=== PATIENT | female | born 1970 | race Caucasian/White ===

== ENCOUNTER 2017-05-22 09:55 | Emergency (ER) | payer SELFPAY ==
--- NOTE | 2017-05-22 10:42 | ER Document Report ---
ED Eye Complaint - General Chief Complaint: Eye Pain Stated Complaint: EYE PAIN Time Seen by Provider: 05/22/17 10:07 Mode of Arrival: Ambulatory Information source: Patient TRAVEL OUTSIDE OF THE [place] IN LAST 30 DAYS: No - HPI Patient complains to provider of: Left eye pain Onset: This morning Eye location: Left Injury: No - denies injury/trauma Occurred at: Home Quality of pain: Sharp, Stabbing Severity: Severe Pain Level: 5 Exposure: No: Alkaline chemical, Acidic chemical, Unknown chemical, Direct trauma, Projectile, Broken glass, Conjunctivitis, Welding arc, Tanning olivas, Other Safety glasses worn: No - n/a Contact lenses worn: No - denies, uses glasses only Eye irrigated by: saline Associated symptoms: Pain, Photophobia, Double vision - chronic per patient, but increased since this AM, Decreased vision - decreased focus ability per patient. denies: Burning, Itching, Redness, Matting, Eyelid swelling, Orbital swelling, Foreign body sensation, Blurred vision, Loss of vision, Other Notes: Patient states pain to movement of her eye + mild HANNON No recent illness, injury, sick contacts, or travel No redness or discharge per patient except for occ watery discharge + smoker, denies drugs Prev eye surgery as a child H/o unnoticed orbit fracture until MRI in [address] Garcia --wanted her to see orbital specialist, but she lost job/insurance and has not gone Intermittent eye pain since then, but worst it has every been per patient this morning. - Related Data Allergies/Adverse Reactions: No Known Allergies Allergy (Verified 05/22/17 10:00) Past Medical History - Social History Smoking Status: Current Every Day Smoker Chew tobacco use (# tins/day): No Frequency of alcohol use: None Drug Abuse: None Family History: CAD, Other - DVTs Pulmonary Medical History: Reports: Hx COPD Renal/ Medical History: Denies: Hx Peritoneal Dialysis GI Medical History: Reports: Hx Gastroesophageal Reflux Disease, Hx Irritable Bowel - Right oophorectomy Musculoskeltal Medical History: Reports Hx Arthritis Past Surgical History: Reports: Hx Appendectomy, Hx Section, Hx Hysterectomy - Immunizations Immunizations up to date: Yes Hx Diphtheria, Pertussis, Tetanus Vaccination: Yes Review of Systems - Review of Systems Notes: REVIEW OF SYSTEMS: CONSTITUTIONAL : Denies fever, chills, or sweats. Denies recent illness. ENT: Denies , ear, throat, or mouth pain or symptoms. Denies nasal or sinus congestion or discharge. Denies throat, tongue, or mouth swelling or difficulty swallowing. CARDIOVASCULAR: Denies chest pain. Denies palpitations or racing or irregular heart beat. Denies ankle edema. RESPIRATORY: Denies cough, cold, or chest congestion. Denies shortness of breath, difficulty breathing, or wheezing. GASTROINTESTINAL: Denies abdominal pain or distention. Denies nausea, vomiting , or diarrhea. Denies blood in vomitus, stools, or per rectum. Denies black, tarry stools. Denies constipation. GENITOURINARY: Denies difficulty urinating, painful urination, burning, frequency, blood in urine, or discharge. MUSCULOSKELETAL: Denies back or neck pain or stiffness. Denies joint pain or swelling. SKIN: Denies rash, lesions or sores. NEUROLOGICAL: + HANNON. see hpi. Denies confusion or altered mental status. Denies passing out or loss of consciousness. Denies dizziness or lightheadedness. Denies weakness or paralysis or loss of use of either side. Denies problems with gait or speech. Denies sensory loss, numbness, or tingling. ALL OTHER SYSTEMS REVIEWED AND NEGATIVE. Dictation was performed using [employer] voice recognition software Physical Exam - Vital signs Vitals: Temp Pulse Resp BP Pulse Ox 98.0 F 83 20 147/95 H 100 05/22/17 10:00 05/22/17 10:00 05/22/17 10:00 05/22/17 10:00 05/22/17 10:00 - General General appearance: Appears well In distress: Mild - eyes closed and lights out in room - HEENT Head: Normocephalic Eyes: No: Pale conjunctiva, Periorbital ecchymosis, Periorbital edema, Scleral icterus, Tears Conjunctiva: Normal. No: Icteric, Injected, Purulent discharge Cornea: Normal. No: Corneal abrasion, Corneal ulcer, Dendrite, Embedded foreign body, Flourescein stain uptake, Opacified, Superficial foreign body Extraocular movements intact: Yes Eyelashes: Normal Pupils: PERRL Visual acuity- Right eye: 20/30 Visual acuity- Left eye: 20/40 Visual acuity- Both eyes: 20/40 Corrective lenses worn: Yes - Glasses Right intraocular pressure: 16 Left intraocular pressure: 17 Lids everted for exam: bilateral: Normal Anterior chamber: Normal Fundascopic: Normal - limited exam due to patient sensitivity to light Nerve palsy: No Visual blake normal: Yes - generally Ears: Normal External canal: Normal Tympanic membrane: Normal Sinus: Normal Nasal: Normal Mouth/Lips: Normal Mucous membranes: Normal Pharynx: Normal Neck: Normal - Respiratory Respiratory status: No respiratory distress Chest status: Nontender Breath sounds: Normal - Cardiovascular Rhythm: Regular Heart sounds: Normal auscultation Murmur: No Pulses: Normal: Brachial, Radial, Carotid Normal capillary refill: Yes - Extremities Ankle: No: Edema Foot: No: Edema - Neurological Neuro grossly intact: Yes Cognition: Normal Orientation: AAOx4 Speech: Normal Cranial nerves: Normal Sensory: Normal Course - Re-evaluation Re-evalutation: 05/22/17 11:13 Patient is an afebrile, well-hydrated, 46-year-old female who presents to the ED complaining of left eye pain and headache, not otherwise specified. Vitals are stable. PE otherwise unremarkable. Her vision test with glasses is similar to what was found in the past. Tonometry bilaterally with 16 in the right and 17 in the left. Fluorescein exam was unremarkable. There was no redness, ulceration, abrasion, or other fluorescein uptake or acute pathology noted on exam. Reviewed case with Dr. Garcia who states that he will be willing to see her in his office this afternoon, but states that we will not need to do anything else at this point based on H&P today. Risks and benefits were reviewed with the patient. Patient is advised to check in with Dr. Garrett 's office to set up a time this afternoon for evaluation. Return to the ED with any worsening/concerning symptoms otherwise as reviewed in discharge. Recheck with your PCM this week as well. Patient is in agreement. - Vital Signs Vital signs: Temp Pulse Resp BP Pulse Ox 98.0 F 83 20 147/95 H 100 05/22/17 10:00 05/22/17 10:00 05/22/17 10:00 05/22/17 10:00 05/22/17 10:00 Procedures - Eye Procedure Left Time completed: 10:30 Eye Irrigated w/ Saline (ccs): 30 Alcaine Drops Administered: Yes Fluorescein applied: Left Slit lamp used: No Discharge - Discharge Clinical Impression: Eye pain Qualifiers: Laterality: left Qualified Code(s): H57.12 - Ocular pain, left eye Headache Qualifiers: Headache type: unspecified Headache chronicity pattern: acute headache Intractability: intractable Qualified Code(s): R51 - Headache Condition: Stable Disposition: HOME, SELF-CARE Additional Instructions: Keep eyes clean Avoid scratching or touching eye Tylenol/ibuprofen as needed Call Dr. Garcia's office to schedule an appointment for this afternoon Return to the ED with any worsening symptoms and/or development of fever, worsening headache, facial numbness/swelling, vision loss, halo's/flashing light in vision, chest pain, palpitations, syncope, shortness of breath, trouble breathing, abdominal pain, muscle weakness/paralysis, numbness/tingling , or other worsening symptoms that are concerning to you. Forms: Elevated Blood Pressure, Smoking Cessation Education Referrals: AUSTIN GARCIA DO [ACTIVE STAFF] - 05/22/17
[2017-05-22] MEDS ORDERED: OXYCODONE HCL IR 5 MG TABLET PO ONE (11:24)
[2017-05-22] MEDS ORDERED: DIPHENHYDRAMINE HCL 50 MG/ML VIAL IV ONE (11:29)
[2017-05-22] MEDS ORDERED: PROCHLORPERAZINE EDISYLATE INJ 10 MG/2 ML VIAL IM ONE (11:29)
[2017-05-22] MEDS ORDERED: KETOROLAC TROMETHAMINE INJ/PF 30 MG/1 ML SDV IV ONE (11:29)
[2017-05-22 11:58] VITALS: BP 123/71
== END 2017-05-22 11:56 | disposition home or self-care (01) ==
LOC: ER 09:55
DX: H57.12 Ocular pain, left eye (principal); R51 Headache; H53.2 Diplopia; H53.149 Visual discomfort, unspecified; H54.7 Unspecified visual loss; Z87.81 Personal history of (healed) traumatic fracture; F17.200 Nicotine dependence, unspecified, uncomplicated; J44.9 Chronic obstructive pulmonary disease, unspecified
CPT/HCPCS: 99283; 96372; 96374; 96375; J1200; J1885; J0780

== ENCOUNTER → 2017-07-23 | Outpatient (CLI) | payer BC ==
--- NOTE | 2017-07-24 09:36 | RADIOLOGY REPORT (SQ) ---
EXAM DESCRIPTION: MRI LT LOWER EXTREMITY COMBO COMPLETED DATE/TIME: 07/23/2017 8:43 pm REASON FOR STUDY: LOCALIZED SWELLING, MASS AND LUMP, LEFT LOWER LIMB, BILATERAL FOOT R22.42 LOCALIZ ED SWELLING, MASS AND LUMP, LEFT LOWER LIMB COMPARISON: None. TECHNIQUE: T1-weighted, T2-weighted, and gradient echo noncontrast multiplanar imaging of the left f oot. Post-contrast fat saturated T1 sagittal coronal and axial images were also obtained. Patient injected with 15 mL of IV ProHance gadolinium. Estimated GFR not required due to patient age LIMITATIONS: None. FINDINGS: MARROW SIGNAL: No marrow signal alteration. No occult fracture. No evidence for osteo ne crosis. JOINT EFFUSION: No significant effusions. PLANTAR FASCIA: Patient has a painful nodule along the plantar aspect of 1st left foot. Painful nodu le was marked on the skin with a vitamin E capsule. Deep to the vitamin-E capsule, a nodular area of contrast enhancement is present along the superficial aspect of the medial bundle plantar fascia, co mpatible with plantar fasciitis and fibroma. This nodule measures 16 mm long by 11 mm transverse by 7 mm in thickness, and is best shown on axial image 18, sagittal image 8, and coronal image 26. TARSOMETATARSAL AND TOE ARTICULATIONS: Anatomic. Mild degenerative changes first metatarsal phalange al joint. INTERMETATARSAL SPACES AND PLANTAR PLATES: Intact. No soft tissue mass to suggest a neuroma. SOFT TISSUES: No masses. No fibrosis. OTHER: No other significant finding. IMPRESSION: Plantar fibroma along the medial plantar fascia bundle, 16 x 11 x 7 mm in size. TECHNICAL DOCUMENTATION: JOB ID: [id number]- All Rights Reserved
--- NOTE | 2017-07-24 09:45 | RADIOLOGY REPORT (SQ) ---
EXAM DESCRIPTION: MRI RT LOWER EXTREMITY COMBO COMPLETED DATE/TIME: 07/23/2017 8:43 pm REASON FOR STUDY: LOCALIZED SWELLING, MASS AND LUMP, RIGHT LOWER LIMB R22.42 LOCALIZED SWELLING, MA SS AND LUMP, LEFT LOWER LIMB COMPARISON: None. TECHNIQUE: T1-weighted, T2-weighted, and gradient echo noncontrast multiplanar imaging of the right foot. Post-contrast fat saturated T1 sagittal coronal and axial images were also obtained. Patient injected with 15 mL of IV ProHance gadolinium. Estimated GFR not required due to patient age LIMITATIONS: None. FINDINGS: MARROW SIGNAL: No marrow signal alteration. No occult fracture. No evidence for osteo ne crosis. JOINT EFFUSION: No significant effusions. PLANTAR FASCIA: In the medial bundle of the plantar fascia, at about the level of the mid 1st metatar jairon, a 9 mm transverse by 9 mm craniocaudad by 14 mm long contrast-enhancing fibroma is present along the superficial aspect of the fascia. A 2nd area of concern along the medial bundle plantar fascia is present with a broad area of increase d signal and contrast enhancement from plantar fasciitis and a more well-circumscribed fibroma. The area of plantar fasciitis with inflammation and enhancement measures about 3.5 cm in length, 14 mm tr ansverse and 7 mm in thickness. A more focal well defined fibroma within the fibers of the plantar f ascia is seen, 2 cm long by 6 mm transverse by 8 mm craniocaudad. TARSOMETATARSAL AND TOE ARTICULATIONS: Anatomic. Mild degenerative changes first metatarsal phalange al joint. INTERMETATARSAL SPACES AND PLANTAR PLATES: Intact. No soft tissue mass to suggest a neuroma. SOFT TISSUES: No masses. No fibrosis. OTHER: No other significant finding. IMPRESSION: Plantar fasciitis with 2 plantar fibromas. TECHNICAL DOCUMENTATION: JOB ID: [id number] [employer]- All Rights Reserved
== END ==
LOC: RAD 18:24
PROVIDERS: ATTEND Podiatrist Foot & Ankle Surgery
DX: R22.43 Localized swelling, mass and lump, lower limb, bilateral (principal)
CPT/HCPCS: 73720 ×2; A9576

== ENCOUNTER 2017-09-13 06:35 | Day surgery (SDC) | payer BC ==
[2017-09-12 15:29] LABS: ABSOLUTE EOSINOPHILS # (AUTO) 0.2 10^3/uL (0.0-0.6); ABSOLUTE LYMPHOCYTES (AUTO) 2.4 10^3/uL (0.5-4.7); ABSOLUTE MONOCYTES (AUTO) 0.6 10^3/uL (0.1-1.4); BASOPHILS % (AUTO) 0.4 % (0-2); EOSINOPHILS % (AUTO) 2.2 % (0-6); HEMATOCRIT 39.9 % (36.0-47.0); HEMOGLOBIN 14.2 g/dL (12.0-15.5); HGB HCT DIFFERENCE 2.7; MEAN CORPUSCULAR HEMOGLOBIN 31.8 pg (27.0-33.4); MEAN CORPUSCULAR HGB CONC 35.5 g/dL (32.0-36.0); MEAN CORPUSCULAR VOLUME 89 fl (80-97); MONOCYTES % (AUTO) 6.6 % (3-13); RED BLOOD COUNT 4.47 10^6/uL (3.72-5.28); RED CELL DISTRIBUTION WIDTH 11.9 % (11.5-14.0); SEGMENTED NEUTROPHILS % (AUTO) 64.8 % (42-78); WHITE BLOOD COUNT 9.2 10^3/uL (4.0-10.5)
[2017-09-12 15:40] LABS: APPEARANCE,URINE CLEAR; BILIRUBIN,URINE NEGATIVE (NEGATIVE); GLUCOSE, URINE NEGATIVE (NEGATIVE); KETONES,URINE NEGATIVE (NEGATIVE); LEUKOCYTE ESTERASE,URINE NEGATIVE (NEGATIVE); NITRITE,URINE NEGATIVE (NEGATIVE); PROTEIN,URINE NEGATIVE (NEGATIVE); URINE SPECIFIC GRAVITY 1.017; UROBILINOGEN,URINE NEGATIVE mg/dL (<2.0)
[~2017-09-13 06:35] MED LIST: CEFAZOLIN 1 GM/D5W RTU 1 GM/50 ML RTUPB IV PRN; RINGERS SOLUTION,LACTATED 1,000 ML IV PRN
[2017-09-13] MEDS ORDERED: FENTANYL CITRATE INJ/PF 100 MCG/2 ML AMPUL ONE ×3 (06:37→09:10)
[2017-09-13] MEDS ORDERED: KETAMINE HCL INJ 500 MG/10 ML VIAL ONE (06:37)
[2017-09-13] MEDS ORDERED: MIDAZOLAM 2 MG/2 ML INJ ONE (06:37)
[2017-09-13] MEDS ORDERED: LIDOCAINE 1% INJ-PF (10 MG/ML) 30 ML SDV ONE (06:38)
[2017-09-13] MEDS ORDERED: PROPOFOL INJ 200 MG/20 ML VIAL IV ONE (06:38)
[2017-09-13] MEDS ORDERED: LIDOCAINE 2% INJ (20 MG/ML) 20 ML MDV ONE (07:13)
[2017-09-13] MEDS ORDERED: BUPIVACAINE HCL 0.5 % INJ/PF 30 ML SDV ONE (07:13)
[2017-09-13] MEDS: BUPIVACAINE HCL 0.5 % INJ/PF 30 ML SDV ONE ×2 (07:45→08:02)
[2017-09-13] MEDS: LIDOCAINE 2% INJ (20 MG/ML) 20 ML MDV ONE ×2 (07:45→08:02)
[2017-09-13] MEDS ORDERED: CEFAZOLIN 1 GM/D5W RTU 1 GM/50 ML RTUPB IV ONE (09:25)
--- NOTE | 2017-09-13 09:46 | [facility] OPERATIVE REPORT E ---
[facility] Operative Report NAME: KARYN ARCHER AGE: 47Y DATE OF SURGERY: 09/13/2017 ROOM: PREOPERATIVE DIAGNOSIS: Multilobular plantar fibromatoma, right foot. POSTOPERATIVE DIAGNOSIS: Multilobular plantar fibromatoma, right foot. PROCEDURE PERFORMED: Excision of multilobular plantar fibromatoma, right foot. SURGEON: RADHA VAZQUEZ D.P.M. INTRAOPERATIVE FINDINGS: Large fibrous tumors originating from the medial and middle band of the plantar fascia. The tumors have increased in size and they were about 2 cm in length and about 0.5 cm in thickness. Intraoperative findings were confirmed clinically and via MRI. PROCEDURE: With the patient laying in the dorsal recumbent position, right foot and leg were prepped and draped in the usual standard sterile orthopedic manner after the local anesthesia was administered, which was posterior tibial block. After the anesthetic effect was accomplished, the left leg was elevated for approximately 2 minutes of time and the left ankle pneumatic tourniquet was inflated up to 250 mmHg after the blood was exsanguinated from the right foot. Next, the right leg was brought to the level of the table and attention was directed to the plantar aspect of the right foot. The plantar incision was planned in such a way that all the multilobular lesions can be reached through the same incision. A curvilinear incision was placed over the plantar medial aspect of the right foot. The initial incision was deepened. The superficial and deep subcutaneous tissues were dissected via blunt and sharp dissection. This dissection was carried until the plantar fibromatomas and the plantar fascia were visualized. The excision of the plantar fibrous tumors was initiated very carefully. The tumors were from the healthy plantar fascia and they were excised en toto. After the resection for the multiple lobular fibrous tumors, the area was evaluated and the surgical outcome was very satisfactory. There was no presence of any other pathological tissues at this time. The right ankle pneumatic tourniquet was deflated. Circulation to the right foot returned to normal immediately as the normal digital color and temperature became apparent. The surgical area was irrigated with copious amounts of sterile saline solution. After that, the subcutaneous tissues from deep to superficial were closed with 3-0 Vicryl. The skin edges were repositioned and coapted using 4-0 nylon continuous Interlock stitch. Betadine compression dressing was applied around the foot followed with an JAMIE bandage and a surgical shoe. This patient tolerated the procedures well, left the operating room with stable vital signs and in good condition. Patient was taken to the recovery room alert, conscious, and oriented. There are no permanent disabilities anticipated at this time. This patient was discharged home with instructions for postoperative care at home. Patient was instructed to ambulate without bearing any weight on the right foot. Patient was allowed to get back to a regular diet and strict instructions were given for the management of the antibiotics and the pain medicine. DICTATING PHYSICIAN: RADHA VAZQUEZ D.P.M. [id number] PHY#: [id number] ID: [id number] JOB#: [id number] ACCT: [id number] cc:RADHA VAZQUEZ D.P.M. >
== END 2017-09-13 10:07 | disposition home or self-care (01) ==
LOC: SC 06:35
PROVIDERS: ATTEND Podiatrist Foot & Ankle Surgery
PROC: 0JBQ0ZZ Excision of Right Foot Subcutaneous Tissue and Fascia, Open Approach (ICD-10-PCS; principal; 2017-09-13 07:30)
DX: M72.2 Plantar fascial fibromatosis (principal); K21.9 Gastro-esophageal reflux disease without esophagitis; F17.210 Nicotine dependence, cigarettes, uncomplicated; Z79.899 Other long term (current) drug therapy; Z79.1 Long term (current) use of non-steroidal anti-inflammatories (NSAID)
CPT/HCPCS: 36415; 85025; 81001; 88304 ×2; 28060; J2250; J3490 ×3; J0690; J3010; J2704; 1470

== ENCOUNTER → 2017-10-24 | Outpatient (CLI) | payer BC ==
[2017-10-24 15:56] LABS: ABSOLUTE BASOPHILS # (AUTO) 0.1 10^3/uL (0.0-0.2); ABSOLUTE EOSINOPHILS # (AUTO) 0.1 10^3/uL (0.0-0.6); ABSOLUTE LYMPHOCYTES (AUTO) 1.4 10^3/uL (0.5-4.7); ABSOLUTE MONOCYTES (AUTO) 0.7 10^3/uL (0.1-1.4); ABSOLUTE NEUT (AUTO) 8.4 10^3/uL (1.7-8.2); BASOPHILS % (AUTO) 0.5 % (0-2); EOSINOPHILS % (AUTO) 1.2 % (0-6); HEMATOCRIT 41.9 % (36.0-47.0); HEMOGLOBIN 14.9 g/dL (12.0-15.5); LYMPHOCYTES % (AUTO) 13.3 % (13-45); MEAN CORPUSCULAR HEMOGLOBIN 31.3 pg (27.0-33.4); MEAN CORPUSCULAR HGB CONC 35.6 g/dL (32.0-36.0); MEAN CORPUSCULAR VOLUME 88 fl (80-97); MONOCYTES % (AUTO) 6.8 % (3-13); PLATELET COUNT 278 10^3/uL (150-450); RED BLOOD COUNT 4.75 10^6/uL (3.72-5.28); RED CELL DISTRIBUTION WIDTH 11.9 % (11.5-14.0); SEGMENTED NEUTROPHILS % (AUTO) 78.2 % (42-78); TOTAL CELLS COUNTED % (AUTO) 100 %; WHITE BLOOD COUNT 10.8 10^3/uL (4.0-10.5)
[2017-10-24 16:06] LABS: APPEARANCE,URINE SLIGHTLY-CLOUDY; BILIRUBIN,URINE NEGATIVE (NEGATIVE); COLOR,URINE YELLOW; GLUCOSE, URINE NEGATIVE (NEGATIVE); KETONES,URINE NEGATIVE (NEGATIVE); LEUKOCYTE ESTERASE,URINE NEGATIVE (NEGATIVE); NITRITE,URINE NEGATIVE (NEGATIVE); PROTEIN,URINE NEGATIVE (NEGATIVE); URINE SPECIFIC GRAVITY 1.025; UROBILINOGEN,URINE NEGATIVE mg/dL (<2.0)
== END ==
LOC: LAB 14:15 → SC 10-25 09:57 → EDSTATUS 10-25 11:45
PROVIDERS: ATTEND Podiatrist Foot & Ankle Surgery
DX: Z01.812 Encounter for preprocedural laboratory examination (principal); M72.2 Plantar fascial fibromatosis
CPT/HCPCS: 36415; 81001; 85025

== ENCOUNTER 2018-04-01 20:40 | Emergency (ER) | payer SELFPAY ==
[2018-04-01] MEDS ORDERED: ONDANSETRON HCL INJ/PF 4 MG/2 ML SDV IV ONE (21:49)
[2018-04-01] MEDS ORDERED: KETOROLAC TROMETHAMINE INJ/PF 30 MG/1 ML SDV IV ONE (21:49)
[2018-04-01 22:13] LABS: ABSOLUTE EOSINOPHILS # (AUTO) 0.1 10^3/uL (0.0-0.6); ABSOLUTE LYMPHOCYTES (AUTO) 1.4 10^3/uL (0.5-4.7); ABSOLUTE MONOCYTES (AUTO) 0.9 10^3/uL (0.1-1.4); ABSOLUTE NEUT (AUTO) 8.5 10^3/uL (1.7-8.2); BASOPHILS % (AUTO) 0.3 % (0-2); EOSINOPHILS % (AUTO) 0.8 % (0-6); HEMATOCRIT 40.9 % (36.0-47.0); HEMOGLOBIN 14.5 g/dL (12.0-15.5); LYMPHOCYTES % (AUTO) 12.7 % (13-45); MEAN CORPUSCULAR HEMOGLOBIN 31.7 pg (27.0-33.4); MEAN CORPUSCULAR HGB CONC 35.5 g/dL (32.0-36.0); MEAN CORPUSCULAR VOLUME 89 fl (80-97); MONOCYTES % (AUTO) 8.2 % (3-13); PLATELET COUNT 263 10^3/uL (150-450); RED BLOOD COUNT 4.58 10^6/uL (3.72-5.28); RED CELL DISTRIBUTION WIDTH 12.4 % (11.5-14.0); TOTAL CELLS COUNTED % (AUTO) 100 %; WHITE BLOOD COUNT 10.9 10^3/uL (4.0-10.5)
[2018-04-01 22:33] LABS: ALANINE AMINOTRANSFERASE 20 U/L (9-52); ALKALINE PHOSPHATASE 69 U/L (38-126); ANION GAP 11 (5-19); ASPARTATE AMINO TRANSFERASE 24 U/L (14-36); BILIRUBIN,DIRECT 0.4 mg/dL (0.0-0.4); BILIRUBIN,TOTAL 0.5 mg/dL (0.2-1.3); BLOOD UREA NITROGEN 6 mg/dL (7-20); CALCIUM 9.9 mg/dL (8.4-10.2); CARBON DIOXIDE 22 mmol/L (22-30); CHLORIDE 109 mmol/L (98-107); GLUCOSE 91 mg/dL (75-110); LIPASE 90.1 U/L (23-300); POTASSIUM 3.8 mmol/L (3.6-5.0); SODIUM 142.4 mmol/L (137-145)
[2018-04-01 23:47] LABS: APPEARANCE,URINE SLIGHTLY-CLOUDY; BILIRUBIN,URINE NEGATIVE (NEGATIVE); COLOR,URINE YELLOW; GLUCOSE, URINE NEGATIVE (NEGATIVE); KETONES,URINE TRACE mg/dL (NEGATIVE); LEUKOCYTE ESTERASE,URINE NEGATIVE (NEGATIVE); NITRITE,URINE NEGATIVE (NEGATIVE); PROTEIN,URINE 30 mg/dL (NEGATIVE); URINE SPECIFIC GRAVITY 1.018; UROBILINOGEN,URINE NEGATIVE mg/dL (<2.0)
--- NOTE | 2018-04-01 23:58 | RADIOLOGY REPORT (SQ) ---
EXAM DESCRIPTION: US PELVIS CLINICAL HISTORY: 47 years Female, low abd/pelvic pain Comparison: None. TECHNIQUE: Transvaginal. LIMITATIONS: None. FINDINGS: Uterus surgically removed. Right ovarian fossa is unremarkable. 3.5 cm left ovary is of normal size, shape, echotexture, and vascularity and contains a 2.6 x 2.4 x 2.4 cm dominant follicle, almost certainly benign, no follow-up imaging recommended. No free fluid. IMPRESSION: No acute findings.
[2018-04-02] MEDS ORDERED: HYDROCODONE/ACETAMINOPHEN 5-325 MG (6 TAB/ER DISP) PO PRN (00:35)
[2018-04-02] MEDS ORDERED: ONDANSETRON ODT 4 MG TAB (6 TAB/ER DISP) PO PRN (00:35)
--- NOTE | 2018-04-02 00:41 | ER Document Report ---
ED General - General Chief Complaint: Abdominal Pain Stated Complaint: ABDOMINAL PAIN Time Seen by Provider: 04/01/18 21:38 Mode of Arrival: Medic Information source: Patient Notes: 47-year-old female patient with complaints of low abdominal pain radiating into the left lower quadrant that started this morning. Patient was reports associated nausea and diarrhea however patient denies any vomiting or fever. Patient reports that she feels this is related to her endometriosis and furthermore states this feels like getting an ovarian cyst. Patient reports that whenever she gets an ovarian cyst she has a preceding feeling of breast tenderness which patient has felt over the last 2 days. TRAVEL OUTSIDE OF THE [place] IN LAST 30 DAYS: No - Related Data Allergies/Adverse Reactions: No Known Allergies Allergy (Verified 10/24/17 14:54) Past Medical History - General Information source: Patient - Social History Smoking Status: Current Some Day Smoker Frequency of alcohol use: Rare Drug Abuse: None Lives with: Alone Family History: CAD, Other - DVTs Patient has suicidal ideation: No Patient has homicidal ideation: No - Past Medical History Cardiac Medical History: Reports: Hx Hypertension - no current meds/observation Denies: Hx Heart Attack Pulmonary Medical History: Reports: Hx COPD Denies: Hx Asthma Neurological Medical History: Denies: Hx Cerebrovascular Accident, Hx Seizures Renal/ Medical History: Denies: Hx Peritoneal Dialysis GI Medical History: Reports: Hx Gastroesophageal Reflux Disease, Hx Irritable Bowel - Right oophorectomy. Denies: Hx Hepatitis, Hx Hiatal Hernia, Hx Ulcer - HX OF IBS/MEDICATED Musculoskeltal Medical History: Reports Hx Arthritis Infectious Medical History: Denies: Hx Hepatitis Past Surgical History: Reports: Hx Appendectomy, Hx Section, Hx Hysterectomy. Denies: Hx Mastectomy, Hx Open Heart Surgery, Hx Pacemaker - Immunizations Immunizations up to date: Yes Hx Diphtheria, Pertussis, Tetanus Vaccination: Yes Review of Systems - Review of Systems Constitutional: No symptoms reported EENT: No symptoms reported Cardiovascular: No symptoms reported Respiratory: No symptoms reported Gastrointestinal: See HPI Genitourinary: No symptoms reported Female Genitourinary: No symptoms reported Musculoskeletal: No symptoms reported Skin: No symptoms reported Hematologic/Lymphatic: No symptoms reported Neurological/Psychological: No symptoms reported Physical Exam - Vital signs Vitals: Temp Pulse Resp BP Pulse Ox 98.6 F 77 18 140/79 H 99 04/01/18 20:45 04/01/18 20:45 04/01/18 20:45 04/01/18 20:45 04/01/18 20:45 - Notes Notes: PHYSICAL EXAMINATION: GENERAL: Well-appearing, well-nourished and in no acute distress. HEAD: Atraumatic, normocephalic. EYES: Pupils equal round and reactive to light, extraocular movements intact, conjunctiva are normal. ENT: Nares patent, oropharynx clear without exudates. Moist mucous membranes. NECK: Normal range of motion, supple without lymphadenopathy LUNGS: Breath sounds clear to auscultation bilaterally and equal. No wheezes rales or rhonchi. HEART: Regular rate and rhythm without murmurs ABDOMEN: Soft, nondistended abdomen with mild tenderness to the LLQ. No guarding, no rebound. No masses appreciated. Female : No CVA tenderness. Musculoskeletal: Normal range of motion, no pitting or edema. No cyanosis. NEUROLOGICAL: Cranial nerves grossly intact. Normal speech, normal gait. Normal sensory, motor exams PSYCH: Normal mood, normal affect. SKIN: Warm, Dry, normal turgor, no rashes or lesions noted. Course - Re-evaluation Re-evalutation: Otherwise healthy, well appearing female with complaints of low abdominal pain. CBC, comprehensive metabolic panel, and urine are unremarkable. Transvaginal ultrasound shows small left ovarian cyst, no evidence of torsion or abscess. Patient reports that her pain is mildly reduced after receiving IV toradol. Vital signs normal. Will d/c patient home with pain and nausea medications. - Vital Signs Vital signs: Temp Pulse Resp BP Pulse Ox 98.1 F 80 16 142/78 H 98 04/02/18 00:59 04/02/18 00:59 04/02/18 00:59 04/02/18 00:59 04/02/18 00:59 - Laboratory Result Diagrams: 04/01/18 22:00 04/01/18 22:00 Laboratory results interpreted by me: 04/01/18 04/01/18 04/01/18 22:00 22:00 23:23 WBC 10.9 H Lymphocytes % 12.7 L Absolute Neutrophils 8.5 H Chloride 109 H BUN 6 L Urine Protein 30 H Urine Ketones TRACE H Urine Blood SMALL H Discharge - Discharge Clinical Impression: Ovarian cyst Qualifiers: Laterality: left Qualified Code(s): N83.202 - Unspecified ovarian cyst, left side Condition: Stable Disposition: HOME, SELF-CARE Additional Instructions: Ovarian Cyst Your examination shows the presence of an ovarian cyst. This is a ball of fluid attached to the ovary. Ovarian cysts in women of child-bearing age are usually innocent. However, the cyst may cause pain when it grows or bursts. An innocent ovarian cyst will usually go away by itself. When the cyst becomes painful, you should rest. Pain medication may be required. Some women find a hot water bottle soothing. The pain usually resolves within one or two days. After menopause, an ovarian cyst may mean a tumor, and requires more aggressive evaluation -- usually surgery is recommended to remove or biopsy the cyst. A very large cyst requires evaluation at any age. Most cysts (even the innocent ones) require follow-up examination. Call the doctor or return at any time if the pain increases significantly, if you become faint, or if you experience vaginal bleeding. Please take pain and nausea medications as prescribed. Please follow-up with your RN [employer] or primary care provider in the next 3-5 days. Return to the emergency department sooner if you develop fever, worsening pain or any other symptoms that are concerning to you. Prescriptions: Morphine Sulfate [Morphine Ir 15 Mg Tablet] 15 mg PO Q4H PRN #10 tablet PRN Reason: Forms: Return to Work Referrals: LANDON MANCIA MD [Primary Care Provider] - Follow up as needed
[2018-04-02 01:00] VITALS: BP 142/78
== END 2018-04-02 01:00 | disposition home or self-care (01) ==
LOC: ER 20:40
DX: N83.202 Unspecified ovarian cyst, left side (principal); R11.0 Nausea; R19.7 Diarrhea, unspecified; N64.59 Other signs and symptoms in breast; J44.9 Chronic obstructive pulmonary disease, unspecified; I10 Essential (primary) hypertension; F17.200 Nicotine dependence, unspecified, uncomplicated
CPT/HCPCS: 99284; 96374; 96375; 36415; 83690; 85025; 80053; 81001; 76856; 93976; J1885; J2405

== ENCOUNTER 2018-04-11 12:00 | Emergency (ER) | payer SELFPAY ==
[2018-04-11] MEDS ORDERED: FENTANYL CITRATE INJ/PF 100 MCG/2 ML AMPUL IV ONE (12:26)
[2018-04-11] MEDS ORDERED: ONDANSETRON 4 MG TAB.RAPDIS PO ONE (12:29)
--- NOTE | 2018-04-11 12:29 | ER Document Report ---
ED Medical Screen (RME) - General Chief Complaint: Abdominal Pain Stated Complaint: ABDOMINAL PAIN Notes: RAPID MEDICAL EVALUATION DISCLOSURE I have seen this patient as part of a Rapid Medical Evaluation and, if applicable, placed any initially appropriate orders. The patient will be seen and fully evaluated, including a full history and physical exam, by a provider ( in Main ED or Fast Track) when a room becomes available. 47-year-old female PMH partial hysterectomy (including uterus and right ovary) here with complaints of "pelvic floor" pain most prominent in the left lower quadrant. The symptoms have been ongoing for the past 2 weeks with associated nausea (however she has chronic diarrhea and hematuria that is unchanged from baseline). The pain worsened acutely today which prompted her to come in to be seen. She was seen on 04/01/2018 for similar complaints and pelvic ultrasound was unremarkable. She has been taking Motrin for the pain. Denies dysuria fevers chills. EXAM Mild diffuse TTP most prominent in LLQ No peritoneal signs TRAVEL OUTSIDE OF THE [place] IN LAST 30 DAYS: No - Related Data Allergies/Adverse Reactions: No Known Allergies Allergy (Verified 04/11/18 12:01) Past Medical History - Social History Frequency of alcohol use: Rare Drug Abuse: None - Past Medical History Cardiac Medical History: Reports: Hx Hypertension - no current meds/observation Denies: Hx Heart Attack Pulmonary Medical History: Reports: Hx COPD Denies: Hx Asthma Neurological Medical History: Denies: Hx Cerebrovascular Accident, Hx Seizures Renal/ Medical History: Denies: Hx Peritoneal Dialysis GI Medical History: Reports: Hx Gastroesophageal Reflux Disease, Hx Irritable Bowel - Right oophorectomy. Denies: Hx Hepatitis, Hx Hiatal Hernia, Hx Ulcer - HX OF IBS/MEDICATED Musculoskeltal Medical History: Reports Hx Arthritis Infectious Medical History: Denies: Hx Hepatitis Past Surgical History: Reports: Hx Appendectomy, Hx Section, Hx Hysterectomy. Denies: Hx Mastectomy, Hx Open Heart Surgery, Hx Pacemaker - Immunizations Immunizations up to date: Yes Hx Diphtheria, Pertussis, Tetanus Vaccination: Yes Physical Exam - Vital signs Vitals: Temp Pulse Resp BP Pulse Ox 98.6 F 91 20 139/84 H 97 04/11/18 12:07 04/11/18 12:07 04/11/18 12:07 04/11/18 12:07 04/11/18 12:07 Course - Vital Signs Vital signs: Temp Pulse Resp BP Pulse Ox 98.6 F 91 20 139/84 H 97 04/11/18 12:07 04/11/18 12:07 04/11/18 12:07 04/11/18 12:07 04/11/18 12:07 Doctor's Discharge - Discharge Referrals: LANDON MANCIA MD [Primary Care Provider] - Follow up as needed
[2018-04-11 13:06] LABS: ABSOLUTE EOSINOPHILS # (AUTO) 0.1 10^3/uL (0.0-0.6); ABSOLUTE LYMPHOCYTES (AUTO) 1.7 10^3/uL (0.5-4.7); ABSOLUTE MONOCYTES (AUTO) 0.6 10^3/uL (0.1-1.4); ABSOLUTE NEUT (AUTO) 6.6 10^3/uL (1.7-8.2); BASOPHILS % (AUTO) 0.4 % (0-2); EOSINOPHILS % (AUTO) 0.8 % (0-6); HEMOGLOBIN 15.5 g/dL (12.0-15.5); LYMPHOCYTES % (AUTO) 18.9 % (13-45); MEAN CORPUSCULAR HEMOGLOBIN 31.4 pg (27.0-33.4); MEAN CORPUSCULAR HGB CONC 35.2 g/dL (32.0-36.0); MEAN CORPUSCULAR VOLUME 89 fl (80-97); MONOCYTES % (AUTO) 6.9 % (3-13); PLATELET COUNT 291 10^3/uL (150-450); RED BLOOD COUNT 4.93 10^6/uL (3.72-5.28); RED CELL DISTRIBUTION WIDTH 12.4 % (11.5-14.0); TOTAL CELLS COUNTED % (AUTO) 100 %
[2018-04-11 13:12] LABS: APPEARANCE,URINE CLEAR; BILIRUBIN,URINE NEGATIVE (NEGATIVE); COLOR,URINE YELLOW; GLUCOSE, URINE NEGATIVE (NEGATIVE); KETONES,URINE NEGATIVE (NEGATIVE); LEUKOCYTE ESTERASE,URINE NEGATIVE (NEGATIVE); NITRITE,URINE NEGATIVE (NEGATIVE); PROTEIN,URINE NEGATIVE (NEGATIVE); URINE SPECIFIC GRAVITY 1.004; UROBILINOGEN,URINE NEGATIVE mg/dL (<2.0)
[2018-04-11 13:20] LABS: ALANINE AMINOTRANSFERASE 11 U/L (9-52); ALBUMIN 4.9 g/dL (3.5-5.0); ALKALINE PHOSPHATASE 77 U/L (38-126); ANION GAP 12 (5-19); ASPARTATE AMINO TRANSFERASE 18 U/L (14-36); BILIRUBIN,DIRECT 0.2 mg/dL (0.0-0.4); BILIRUBIN,TOTAL 0.4 mg/dL (0.2-1.3); BLOOD UREA NITROGEN 7 mg/dL (7-20); CALCIUM 10.1 mg/dL (8.4-10.2); CARBON DIOXIDE 24 mmol/L (22-30); CHLORIDE 106 mmol/L (98-107); GLUCOSE 84 mg/dL (75-110); LIPASE 180.9 U/L (23-300); POTASSIUM 4.4 mmol/L (3.6-5.0); SODIUM 142.1 mmol/L (137-145); TOTAL PROTEIN 8.2 g/dL (6.3-8.2)
--- NOTE | 2018-04-11 13:54 | ER Document Report ---
ED General - General Chief Complaint: Abdominal Pain Stated Complaint: ABDOMINAL PAIN Time Seen by Provider: 04/11/18 13:09 Notes: This is a 47-year-old female patient to the emergency department for second time within the last 2 weeks for complaints of abdominal pain. Patient states that she has endometriosis. Has had partial hysterectomy. Had pain approximately 2 weeks ago and was seen in the emergency department. Had ultrasound. Patient states that she needs to have everything removed because she cannot take the pain anymore. States that sometime in the past she had scar tissue on the right ovary which was attached to intestines and had to have that removed. States that she does not have insurance. Cannot take the pain anymore. Was at work today and began to have worsening pain in the left lower quadrant. Patient only has the left ovary at this time. It is described as 5/ 5 on a numeric pain scale. Throbbing. Located in the left lower quadrant radiates to the central abdomen and periumbilical area. TRAVEL OUTSIDE OF THE [place] IN LAST 30 DAYS: No - HPI Onset/Duration: Gradual, Worse - Related Data Allergies/Adverse Reactions: No Known Allergies Allergy (Verified 04/11/18 12:01) Past Medical History - General Information source: Patient - Social History Smoking Status: Current Every Day Smoker Cigarette use (# per day): Yes Smoking Education Provided: Yes Frequency of alcohol use: Rare Drug Abuse: None Lives with: Family Family History: CAD, Other - DVTs Patient has suicidal ideation: No Patient has homicidal ideation: No - Past Medical History Cardiac Medical History: Reports: Hx Hypertension - no current meds/observation Denies: Hx Heart Attack Pulmonary Medical History: Reports: Hx COPD Denies: Hx Asthma Neurological Medical History: Denies: Hx Cerebrovascular Accident, Hx Seizures Renal/ Medical History: Denies: Hx Peritoneal Dialysis GI Medical History: Reports: Hx Gastroesophageal Reflux Disease, Hx Irritable Bowel - Right oophorectomy. Denies: Hx Hepatitis, Hx Hiatal Hernia, Hx Ulcer - HX OF IBS/MEDICATED Musculoskeltal Medical History: Reports Hx Arthritis Infectious Medical History: Denies: Hx Hepatitis Past Surgical History: Reports: Hx Appendectomy, Hx Section, Hx Hysterectomy. Denies: Hx Mastectomy, Hx Open Heart Surgery, Hx Pacemaker - Immunizations Immunizations up to date: Yes Hx Diphtheria, Pertussis, Tetanus Vaccination: Yes Review of Systems - Review of Systems Constitutional: denies: Fever, Malaise, Weakness EENT: denies: Eye pain, Double vision, Ear pain, Nose pain, Mouth pain Cardiovascular: denies: Chest pain, Palpitations, Heart racing, Orthopnea, Dyspnea Respiratory: denies: Cough, Hurts to breathe, Short of breath, Wheezing Gastrointestinal: Abdominal pain, Nausea. denies: Diarrhea, Vomiting, Constipation, Black stools, Rectal bleeding Genitourinary: denies: Burning, Dysuria, Discharge Female Genitourinary: denies: , Vaginal discharge, Vaginal bleeding, Painful intercourse Musculoskeletal: denies: Back pain, Muscle pain, Leg swelling, Ankle swelling Skin: denies: Dryness, Lesions, Lumps, Rash Hematologic/Lymphatic: denies: Anemia, Blood clots, Easy bleeding, Easy bruising Neurological/Psychological: denies: Confusion, Weakness, Numbness Physical Exam - Vital signs Vitals: Temp Pulse Resp BP Pulse Ox 98.6 F 91 20 139/84 H 97 04/11/18 12:07 04/11/18 12:07 04/11/18 12:07 04/11/18 12:07 04/11/18 12:07 Interpretation: Normal - General General appearance: Appears well, Alert - HEENT Head: Normocephalic, Atraumatic Eyes: Normal Pupils: PERRL - Respiratory Respiratory status: No respiratory distress Chest status: Nontender Breath sounds: Normal Chest palpation: Normal - Cardiovascular Rhythm: Regular Heart sounds: Normal auscultation Murmur: No - Abdominal Inspection: Normal Distension: No distension Bowel sounds: Normal Tenderness: Tender, Other - Mild tenderness palpation left lower quadrant. No guarding or rebound. Organomegaly: No organomegaly - Back Back: Normal, Nontender - Extremities General upper extremity: Normal inspection, Nontender, Normal color, Normal ROM , Normal temperature General lower extremity: Normal inspection, Nontender, Normal color, Normal ROM , Normal temperature, Normal weight bearing. No: Saturnino's sign - Neurological Neuro grossly intact: Yes Cognition: Normal Orientation: AAOx4 Shavonne Coma Scale Eye Opening: Spontaneous Shavonne Coma Scale Verbal: Oriented Shavonne Coma Scale Motor: Obeys Commands Shavonne Coma Scale Total: 15 Speech: Normal Motor strength normal: LUE, RUE, LLE, RLE Sensory: Normal - Psychological Associated symptoms: Normal affect, Normal mood - Skin Skin Temperature: Warm Skin Moisture: Dry Skin Color: Normal Course - Re-evaluation Re-evalutation: 04/11/18 15:26 Patient has a small 2 cm left ovarian cyst. No free fluid. Unlikely this represents torsion. Had recent ultrasound which was unremarkable. CT scan is negative. Labs are fairly unremarkable. Consult with [facility]. They are more than happy to see her in the clinic did not think that patient needs to be seen immediately. We will prescribe her some pain medication. Patient advised to follow-up with [facility] so they can facilitate indigent care for her. Nothing further to offer at this time. - Vital Signs Vital signs: Temp Pulse Resp BP Pulse Ox 98.6 F 91 20 139/84 H 97 04/11/18 12:07 04/11/18 12:07 04/11/18 12:07 04/11/18 12:07 04/11/18 12:07 - Laboratory Result Diagrams: 04/11/18 12:41 04/11/18 12:41 Laboratory results interpreted by me: 04/11/18 12:41 Urine Blood SMALL H Discharge - Discharge Clinical Impression: Ovarian cyst Qualifiers: Laterality: left Qualified Code(s): N83.202 - Unspecified ovarian cyst, left side Condition: Good Disposition: HOME, SELF-CARE Instructions: Ovarian Cyst ([facility]) Prescriptions: Meloxicam 15 mg PO DAILY 20 Days #20 tablet Oxycodone HCl/Acetaminophen [Percocet 5-325 mg Tablet] 1 tab PO Q6H PRN 4 Days # 12 tablet PRN Reason: Pain Scale Of 3 Referrals: ESMER REYEZ MD [ACTIVE STAFF] - Follow up as needed LANDON MANCIA MD [Primary Care Provider] - 04/14/18 8:00 am
[2018-04-11] MEDS ORDERED: KETOROLAC TROMETHAMINE INJ/PF 30 MG/1 ML SDV IV ONE (14:51)
--- NOTE | 2018-04-11 15:16 | RADIOLOGY REPORT (SQ) ---
EXAM DESCRIPTION: CT ABD/PELVIS WITH IV ORAL COMPLETED DATE/TIME: 04/11/2018 3:03 pm REASON FOR STUDY: diffuse abd pain, worse in LLQ; neg US; eval bowel COMPARISON: None. TECHNIQUE: CT scan of the abdomen and pelvis performed using helical scanning technique with dynamic intravenous contrast injection. No oral contrast. Images reviewed with lung, soft tissue, and bone windows. Reconstructed coronal and sagittal MPR images reviewed. Delayed images for evaluation of the urinary system also acquired. All images stored on PACS. All CT scanners at this facility use dose modulation, iterative reconstruction, and/or weight based d osing when appropriate to reduce radiation dose to as low as reasonably achievable (ALARA). [facility]: Dose Right [facility]: CareDose [facility]: Dose Right [facility]: Teradose 4D [facility]: Tehnologii obratnyh zadach CONTRAST TYPE AND DOSE: contrast/concentration: Isovue 370.00 mg/ml; Total Contrast Delivered: 72.0 ml; Total Saline Delivered: 66.0 ml RENAL FUNCTION: BUN 7 creatinine 0.54. RADIATION DOSE: CT Rad equipment meets quality standard of care and radiation dose reduction techniq ues were employed. CTDIvol: 6.6 - 9.1 mGy. DLP: 826 mGy-cm.. LIMITATIONS: None. FINDINGS: LOWER CHEST: No significant findings. No nodules or infiltrates. LIVER: Normal size. No masses. No dilated ducts. SPLEEN: Normal size. No focal lesions. PANCREAS: No masses. No significant calcifications. No adjacent inflammation or peripancreatic fluid collections. Pancreatic duct not dilated. GALLBLADDER: No identified stones by CT criteria. No inflammatory changes to suggest cholecystitis. ADRENAL GLANDS: No significant masses or asymmetry. RIGHT KIDNEY AND URETER: No solid masses. No significant calcifications. No hydronephrosis or hyd roureter. LEFT KIDNEY AND URETER: No solid masses. No significant calcifications. No hydronephrosis or hydr oureter. AORTA AND VESSELS: No aneurysm. No dissection. Renal arteries, SMA, celiac without stenosis. RETROPERITONEUM: No retroperitoneal adenopathy, hemorrhage or masses. BOWEL AND PERITONEAL CAVITY: No masses or inflammatory changes. No free fluid or peritoneal masses. APPENDIX: Surgically absent. PELVIS: No mass. 2 cm left ovarian cyst. No free fluid. Normal bladder. ABDOMINAL WALL: No masses. No hernias. BONES: No significant or acute findings. OTHER: No other significant finding. IMPRESSION: NO SIGNIFICANT OR ACUTE FINDING IN THE ABDOMEN OR PELVIS ON CT SCAN WITH IV CONTRAST. I NCIDENTAL LEFT OVARIAN CYST, RECENTLY EVALUATED WITH ULTRASOUND (04/01/2018). TECHNICAL DOCUMENTATION: JOB ID: [id number] CT dated 11/21/2013. Ultrasound dated 04/01/2018. Quality ID # [id number]: Final reports with documentation of one or more dose reduction techniques (e.g., Au tomated exposure control, adjustment of the mA and/or kV according to patient size, use of iterative reconstruction technique) 2010 [employer]- All Rights Reserved Reading location - IP/workstation name: [email or web address]
[2018-04-11 15:58] VITALS: BP 136/83
== END 2018-04-11 15:57 | disposition home or self-care (01) ==
LOC: ER 12:00
DX: N83.202 Unspecified ovarian cyst, left side (principal); R10.32 Left lower quadrant pain; R11.0 Nausea; F17.210 Nicotine dependence, cigarettes, uncomplicated; I10 Essential (primary) hypertension; J44.9 Chronic obstructive pulmonary disease, unspecified
CPT/HCPCS: 99284; 96374; 36415; 83690; 85025; 81025; 80053; 81001; 74177; S0119; J3010; J1885

== ENCOUNTER 2018-06-26 13:46 | Emergency (ER) | payer SELFPAY ==
[2018-06-26] MEDS ORDERED: ONDANSETRON HCL INJ/PF 4 MG/2 ML SDV IV ONE (14:11)
[2018-06-26] MEDS ORDERED: KETOROLAC TROMETHAMINE INJ/PF 30 MG/1 ML SDV IV ONE ×2 (14:11→17:03)
[2018-06-26] MEDS ORDERED: FENTANYL CITRATE INJ/PF 100 MCG/2 ML AMPUL IV ONE (14:11)
[2018-06-26] MEDS ORDERED: NORMAL SALINE 1000 ML 1,000 ML IV PRN (14:12)
--- NOTE | 2018-06-26 14:13 | ER Document Report ---
ED Medical Screen (RME) - General Chief Complaint: Abdominal Pain Stated Complaint: abdominal pain Time Seen by Provider: 06/26/18 14:10 Notes: 47 years old female with a history of hysterectomy oophorectomy and left ovary and cyst presents today with sudden onset of left lower abdomen pain radiating to the back as well as to the leg. No fever chills no nausea vomiting diarrhea or constipation. Denies any dysuria frequency or urgency. Denies any discharges. She was on pain management until last September. TRAVEL OUTSIDE OF THE [place] IN LAST 30 DAYS: No - Related Data Allergies/Adverse Reactions: No Known Allergies Allergy (Verified 06/26/18 13:46) Past Medical History - Social History Frequency of alcohol use: None Drug Abuse: None - Past Medical History Cardiac Medical History: Reports: Hx Hypertension - no current meds/observation Denies: Hx Heart Attack Pulmonary Medical History: Reports: Hx COPD Denies: Hx Asthma Neurological Medical History: Denies: Hx Cerebrovascular Accident, Hx Seizures Renal/ Medical History: Denies: Hx Peritoneal Dialysis GI Medical History: Reports: Hx Gastroesophageal Reflux Disease, Hx Irritable Bowel - Right oophorectomy. Denies: Hx Hepatitis, Hx Hiatal Hernia. Comment Only: Hx Ulcer - HX OF IBS/MEDICATED Musculoskeltal Medical History: Reports Hx Arthritis Infectious Medical History: Denies: Hx Hepatitis Past Surgical History: Reports: Hx Appendectomy, Hx Section, Hx Gynecologic Surgery - right ovary removed, Hx Hysterectomy. Denies: Hx Mastectomy, Hx Open Heart Surgery, Hx Pacemaker - Immunizations Immunizations up to date: Yes Hx Diphtheria, Pertussis, Tetanus Vaccination: Yes Physical Exam - Vital signs Vitals: Temp Pulse Resp BP Pulse Ox 98.5 F 96 24 H 136/71 H 98 06/26/18 13:50 06/26/18 13:50 06/26/18 13:50 06/26/18 13:50 06/26/18 13:50 Course - Vital Signs Vital signs: Temp Pulse Resp BP Pulse Ox 98.5 F 96 24 H 136/71 H 98 06/26/18 13:50 06/26/18 13:50 06/26/18 13:50 06/26/18 13:50 06/26/18 13:50 Doctor's Discharge - Discharge Referrals: LANDON MANCIA MD [Primary Care Provider] - Follow up as needed
[2018-06-26 14:53] LABS: APPEARANCE,URINE CLEAR; BILIRUBIN,URINE NEGATIVE (NEGATIVE); COLOR,URINE STRAW; GLUCOSE, URINE NEGATIVE (NEGATIVE); KETONES,URINE NEGATIVE (NEGATIVE); LEUKOCYTE ESTERASE,URINE NEGATIVE (NEGATIVE); NITRITE,URINE NEGATIVE (NEGATIVE); PROTEIN,URINE NEGATIVE (NEGATIVE); URINE SPECIFIC GRAVITY 1.004; UROBILINOGEN,URINE NEGATIVE mg/dL (<2.0)
--- NOTE | 2018-06-26 14:57 | ER Document Report ---
ED General - General Chief Complaint: Abdominal Pain Stated Complaint: abdominal pain Time Seen by Provider: 06/26/18 14:10 Mode of Arrival: Ambulatory Information source: Patient, [facility] Records Notes: 47-year-old female with chronic abdominal pain, hypertension, COPD, IBS, Livingston 's esophagus, ovarian cysts, opiate abuse presents with complaint of left sided lower abdominal pain that started this morning. Patient describes it as a stabbing constant pain. Patient has had this pain in the past when she was diagnosed with a large left ovarian cyst. Patient has had associated nausea without vomiting. She is complaining of dysuria. 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 Patient does have a history of abdominal adhesions secondary to multiple abdominal surgeries including hysterectomy and oophorectomy appendectomy. Patient states she currently is on no pain medications. Denies fever, chills, chest pain, shortness of breath, vaginal discharge. Patient's last bowel movement was this morning and she denies any black or bloody stool. TRAVEL OUTSIDE OF THE [place] IN LAST 30 DAYS: No - HPI Onset: This morning Onset/Duration: Sudden, Persistent, Worse Quality of pain: Stabbing Severity: Moderate Associated symptoms: Nausea. denies: Chest pain, Diarrhea, Fever, Shortness of breath Exacerbated by: Movement, Walking Relieved by: Denies Similar symptoms previously: Yes Recently seen / treated by doctor: Yes - Related Data Allergies/Adverse Reactions: No Known Allergies Allergy (Verified 06/26/18 13:46) Past Medical History - General Information source: Patient - Social History Smoking Status: Current Every Day Smoker Cigarette use (# per day): Yes - 15 Smoking Education Provided: Yes - 4 minutes of smoking cessation provided Frequency of alcohol use: None Drug Abuse: None Lives with: Family Family History: CAD, Other - DVTs Patient has suicidal ideation: No Patient has homicidal ideation: No - Past Medical History Cardiac Medical History: Reports: Hx Hypertension - no current meds/observation Denies: Hx Heart Attack Pulmonary Medical History: Reports: Hx COPD Denies: Hx Asthma Neurological Medical History: Denies: Hx Cerebrovascular Accident, Hx Seizures Renal/ Medical History: Denies: Hx Peritoneal Dialysis GI Medical History: Reports: Hx Gastroesophageal Reflux Disease, Hx Irritable Bowel - Right oophorectomy. Denies: Hx Hepatitis, Hx Hiatal Hernia. Comment Only: Hx Ulcer - HX OF IBS/MEDICATED Musculoskeletal Medical History: Reports Hx Arthritis Infectious Medical History: Denies: Hx Hepatitis Past Surgical History: Reports: Hx Appendectomy, Hx Section, Hx Gynecologic Surgery - right ovary removed, Hx Hysterectomy. Denies: Hx Mastectomy, Hx Open Heart Surgery, Hx Pacemaker - Immunizations Immunizations up to date: Yes Hx Diphtheria, Pertussis, Tetanus Vaccination: Yes Review of Systems - Review of Systems Notes: REVIEW OF SYSTEMS: CONSTITUTIONAL : Denies fever, chills, or sweats. Denies recent illness. Denies weight loss, recent hospitalizations. EENT: Denies visual changes, eye pain. Denies nasal or sinus congestion or discharge. Denies sore throat, oral lesions, difficulty swallowing. CARDIOVASCULAR: Denies chest pain. Denies palpitations. Denies lower extremity edema. RESPIRATORY: Denies cough, cold, or chest congestion. Denies shortness of breath, wheezing. GASTROINTESTINAL: Denies abdominal distention. Denies vomiting, or diarrhea. Denies blood in vomitus, stools, or per rectum. Denies black, tarry stools. Denies constipation. GENITOURINARY: Denies difficulty urinating, painful urination, frequency, blood in urine, or vaginal discharge. MUSCULOSKELETAL: Denies back or neck pain or stiffness. Denies joint pain or swelling. SKIN: Denies rash, lesions or sores. HEMATOLOGIC : Denies easy bruising or bleeding. LYMPHATIC: Denies swollen glands. NEUROLOGICAL: Denies confusion or altered mental status. Denies passing out or loss of consciousness. Denies dizziness or lightheadedness. Denies headache. Denies weakness or paralysis. Denies problems difficulty with ambulation, slurred speech. Denies sensory loss, numbness, or tingling. Denies seizures. PSYCHIATRIC: Denies anxiety or stress. Denies depression, suicidal ideation, or homicidal ideation. Denies visual or auditory hallucinations. Physical Exam - Vital signs Vitals: Temp Pulse Resp BP Pulse Ox 98.5 F 96 24 H 136/71 H 98 06/26/18 13:50 06/26/18 13:50 06/26/18 13:50 06/26/18 13:50 06/26/18 13:50 Interpretation: Hypertensive, Tachypneic - Notes Notes: PHYSICAL EXAMINATION: GENERAL: Well-appearing, well-nourished and in no acute distress. HEAD: Atraumatic, normocephalic. EYES: Pupils equal round and reactive to light, extraocular movements intact, conjunctiva are normal. ENT: Nares patent, oropharynx clear without exudates. Moist mucous membranes. NECK: Normal range of motion, supple without lymphadenopathy LUNGS: Breath sounds clear to auscultation bilaterally and equal. No wheezes rales or rhonchi. HEART: Regular rate and rhythm without murmurs ABDOMEN: Tenderness to palpation the right and left lower quadrant left greater than right. No guarding or rebound. Female : No external vaginal lesions, no vaginal discharge. Cervix absent. Musculoskeletal: Normal range of motion, no pitting or edema. No cyanosis. NEUROLOGICAL: Cranial nerves grossly intact. Normal speech, normal gait. Normal sensory, motor exams PSYCH: Normal mood, normal affect. SKIN: Warm, Dry, normal turgor, no rashes or lesions noted. Course - Re-evaluation Re-evalutation: Laboratory 06/26/18 06/26/18 06/26/18 14:20 14:20 14:20 WBC 9.4 RBC 4.62 Hgb 14.5 Hct 42.3 MCV 92 MCH 31.4 MCHC 34.3 RDW 12.2 Plt Count 263 Seg Neutrophils % 75.5 Lymphocytes % 17.1 Monocytes % 6.5 Eosinophils % 0.6 Basophils % 0.3 Absolute Neutrophils 7.1 Absolute Lymphocytes 1.6 Absolute Monocytes 0.6 Absolute Eosinophils 0.1 Absolute Basophils 0.0 Sodium 141.8 Potassium 3.8 Chloride 106 Carbon Dioxide 26 Anion Gap 10 BUN 8 Creatinine 0.52 Est GFR ( Amer) > 60 Est GFR (Non-Af Amer) > 60 Glucose 96 Calcium 9.2 Lipase 36.6 Urine Color STRAW Urine Appearance CLEAR Urine pH 6.0 Ur Specific Braham 1.004 Urine Protein NEGATIVE Urine Glucose (UA) NEGATIVE Urine Ketones NEGATIVE Urine Blood SMALL H Urine Nitrite NEGATIVE Urine Bilirubin NEGATIVE Urine Urobilinogen NEGATIVE Ur Leukocyte Esterase NEGATIVE Urine WBC (Auto) 1 Urine RBC (Auto) 1 Squamous Epi Cells Auto <1 Urine Mucus (Auto) RARE Urine Ascorbic Acid NEGATIVE Urine HCG, Qual NEGATIVE Trichomonas (Wet Prep) Vaginal WBC Vaginal Yeast Chlamydia DNA (PCR) N.gonorrhoeae DNA (PCR) 06/26/18 06/26/18 16:15 16:15 WBC RBC Hgb Hct MCV MCH MCHC RDW Plt Count Seg Neutrophils % Lymphocytes % Monocytes % Eosinophils % Basophils % Absolute Neutrophils Absolute Lymphocytes Absolute Monocytes Absolute Eosinophils Absolute Basophils Sodium Potassium Chloride Carbon Dioxide Anion Gap BUN Creatinine Est GFR ( Amer) Est GFR (Non-Af Amer) Glucose Calcium Lipase Urine Color Urine Appearance Urine pH Ur Specific Braham Urine Protein Urine Glucose (UA) Urine Ketones Urine Blood Urine Nitrite Urine Bilirubin Urine Urobilinogen Ur Leukocyte Esterase Urine WBC (Auto) Urine RBC (Auto) Squamous Epi Cells Auto Urine Mucus (Auto) Urine Ascorbic Acid Urine HCG, Qual Trichomonas (Wet Prep) NO TRICHOMONAS SEEN Vaginal WBC RARE WBCS SEEN Vaginal Yeast NO YEAST SEEN Chlamydia DNA (PCR) Cancelled N.gonorrhoeae DNA (PCR) Cancelled Acute Abdomen Series 06/26/18 14:11 IMPRESSION: NO RADIOGRAPHIC EVIDENCE FOR ACUTE ABDOMINAL DISEASE. Transvaginal US 06/26/18 14:50 IMPRESSION: NORMAL TRANSVAGINAL PELVIC ULTRASOUND. 06/26/18 17:08 47-year-old female with chronic abdominal pain presents with complaint of abdominal pain that started this morning. Pain is located in the right and left lower quadrants. She describes it as a stabbing pain. Patient was seen by myself upon arrival. Vital signs were reviewed. Patient is afebrile, normotensive and not hypoxic. Patient does not appear toxic or dehydrated. They are in no acute distress. Previous medical records and nursing notes reviewed. Significant findings include tenderness with palpation in the right and left lower quadrants and suprapubically. No evidence of surgical abdomen. CBC shows no leukocytosis or anemia. CMP shows no electrolyte abnormalities. Urinalysis is not consistent with urinary tract infection. Transvaginal ultrasound was performed and showed trace free fluid but no other abnormalities. Pelvic exam was within normal limits. No evidence of trichomonas, bacterial vaginosis. Patient was administered fentanyl, Zofran and initially reported an improvement of pain. On reevaluation she states that she is still in significant pain. Additional doses of Dilaudid and Toradol will be administered. Because of the patient's history of opiate abuse she will not be sent home on any narcotic medications. Patient provided the opportunity to ask questions, and express concerns. Discharge instructions discussed. Patient is agreeable with discharge home. Return indications explained and discussed with the patient who displays understanding. Patient encouraged to return to the emergency department immediately with any concerns. 06/26/18 17:08 06/26/18 17:10 06/26/18 19:51 - Vital Signs Vital signs: Temp Pulse Resp BP Pulse Ox 98.5 F 96 24 H 147/94 H 100 06/26/18 13:50 06/26/18 13:50 06/26/18 13:50 06/26/18 17:00 06/26/18 17:00 - Laboratory Result Diagrams: 06/26/18 14:20 06/26/18 14:20 Laboratory results interpreted by me: 06/26/18 14:20 Urine Blood SMALL H - Diagnostic Test Radiology reviewed: Image reviewed, Reports reviewed Procedures - Ultrasound/Bedside Ultrasound/Bedside Time completed: 16:22 - FAST exam was performed due to the patient's complaint of she feels like she is bleeding inside. There was no evidence of blood in the right upper quadrant, left upper quadrant, pelvis or surrounding the pericardium. No evidence of hydronephrosis. See images on chart. Ultrasound: Normal Discharge - Discharge Clinical Impression: Chronic abdominal pain, History of ovarian cyst, Adhesion of abdominal wall, Elevated blood pressure reading Condition: Good Disposition: HOME, SELF-CARE Instructions: Abdominal Pain ([facility]), Chronic Pain Control ([facility]) Additional Instructions: Please follow-up with her [employer] OPERATOR regarding her lower abdominal pain. Your ultrasound today did not show any evidence of ovarian cyst or ovarian torsion Prescriptions: Naproxen [Naprosyn] 500 mg PO BID #20 tablet Forms: Return to Work Referrals: LANDON MANCIA MD [Primary Care Provider] - Follow up tomorrow
--- NOTE | 2018-06-26 15:23 | RADIOLOGY REPORT (SQ) ---
EXAM DESCRIPTION: ACUTE ABDOMEN SERIES COMPLETED DATE/TIME: 06/26/2018 3:14 pm REASON FOR STUDY: Abdominal pain COMPARISON: None. NUMBER OF VIEWS: Three views. TECHNIQUE: Frontal chest, supine abdomen and upright/decubitus abdomen radiographic images acquired. LIMITATIONS: None. FINDINGS: CHEST: Lungs clear of infiltrates. FREE AIR: None. No abnormal gas collections. BOWEL GAS PATTERN: Nonobstructive pattern. No dilated loops or air fluid levels. CALCIFICATIONS: No suspicious calcifications. HARDWARE: None in the abdomen. SOFT TISSUES: No gross mass or suggestion of organomegaly. BONES: No acute fracture. No worrisome bone lesions. OTHER: No other significant finding. IMPRESSION: NO RADIOGRAPHIC EVIDENCE FOR ACUTE ABDOMINAL DISEASE. TECHNICAL DOCUMENTATION: JOB ID: [id number] [employer] All Rights Reserved Reading location - IP/workstation name: [email or web address]
--- NOTE | 2018-06-26 15:49 | RADIOLOGY REPORT (SQ) ---
EXAM DESCRIPTION: U/S NON OB PEL TV W/DOPPLER COMPLETED DATE/TIME: 06/26/2018 3:39 pm REASON FOR STUDY: LLq pain COMPARISON: 04/01/2018 TECHNIQUE: Dynamic and static grayscale images acquired of the pelvis via transvaginal approach and recorded on PACS. Additional selected color Doppler and spectral images recorded. LIMITATIONS: None. FINDINGS: UTERUS: Surgically absent ENDOMETRIAL STRIPE: Not applicable. CERVIX: Not applicable. RIGHT OVARY AND DOPPLER: Ovary absent. LEFT OVARY AND DOPPLER: Ovary not seen. FREE FLUID: Small amount of free fluid. OTHER: No other significant finding. MEASUREMENTS: UTERUS: Surgically absent. ENDOMETRIAL STRIPE: Not applicable. RIGHT OVARY: Surgically absent. LEFT OVARY: Ovary not seen. IMPRESSION: NORMAL TRANSVAGINAL PELVIC ULTRASOUND. TECHNICAL DOCUMENTATION: JOB ID: [id number] [employer]- All Rights Reserved Rev-03/14 Reading location - IP/workstation name: [email or web address]
[2018-06-26] MEDS ORDERED: HYDROMORPHONE HCL INJ/PF 2 MG/ML AMPULE IV ONE (16:00)
[2018-06-26 16:13] LABS: ABSOLUTE EOSINOPHILS # (AUTO) 0.1 10^3/uL (0.0-0.6); ABSOLUTE LYMPHOCYTES (AUTO) 1.6 10^3/uL (0.5-4.7); ABSOLUTE MONOCYTES (AUTO) 0.6 10^3/uL (0.1-1.4); ABSOLUTE NEUT (AUTO) 7.1 10^3/uL (1.7-8.2); BASOPHILS % (AUTO) 0.3 % (0-2); EOSINOPHILS % (AUTO) 0.6 % (0-6); HEMATOCRIT 42.3 % (36.0-47.0); HEMOGLOBIN 14.5 g/dL (12.0-15.5); LYMPHOCYTES % (AUTO) 17.1 % (13-45); MEAN CORPUSCULAR HEMOGLOBIN 31.4 pg (27.0-33.4); MEAN CORPUSCULAR HGB CONC 34.3 g/dL (32.0-36.0); MEAN CORPUSCULAR VOLUME 92 fl (80-97); MONOCYTES % (AUTO) 6.5 % (3-13); PLATELET COUNT 263 10^3/uL (150-450); RED BLOOD COUNT 4.62 10^6/uL (3.72-5.28); RED CELL DISTRIBUTION WIDTH 12.2 % (11.5-14.0); SEGMENTED NEUTROPHILS % (AUTO) 75.5 % (42-78); TOTAL CELLS COUNTED % (AUTO) 100 %; WHITE BLOOD COUNT 9.4 10^3/uL (4.0-10.5)
[2018-06-26 16:30] LABS: T.VAGINALIS (WET MOUNT) NO TRICHOMONAS SEEN; WBCS (WET MOUNT) RARE WBCS SEEN; YEAST (WET MOUNT) NO YEAST SEEN
[2018-06-26 16:34] LABS: ANION GAP 10 (5-19); BLOOD UREA NITROGEN 8 mg/dL (7-20); CALCIUM 9.2 mg/dL (8.4-10.2); CARBON DIOXIDE 26 mmol/L (22-30); CHLORIDE 106 mmol/L (98-107); GLUCOSE 96 mg/dL (75-110); LIPASE 36.6 U/L (23-300); POTASSIUM 3.8 mmol/L (3.6-5.0); SODIUM 141.8 mmol/L (137-145)
[2018-06-26 17:43] VITALS: BP 147/94
[2018-06-26 17:57] LABS: CHLAM PCR NOT DETECTED (NOT DETECT); GON PCR NOT DETECTED (NOT DETECT)
== END 2018-06-26 17:44 | disposition home or self-care (01) ==
LOC: ER 13:46
DX: R10.31 Right lower quadrant pain (principal); R10.32 Left lower quadrant pain; G89.29 Other chronic pain; R11.0 Nausea; R30.0 Dysuria; I10 Essential (primary) hypertension; J44.9 Chronic obstructive pulmonary disease, unspecified; F17.210 Nicotine dependence, cigarettes, uncomplicated
CPT/HCPCS: 96376; 99406; 99285; 96361; 96374; 96375; 36415; 87210; 83690; 85025; 81025; 80048; 81001; 87491; 87591; 74022; 76830; 93976; J3010; J1885; J1170; J2405; J7030